=== PATIENT | female | born 1985 | race African-American/Black ===

== ENCOUNTER 2017-04-01 09:41 | Emergency (ER) | payer OTHER ==
[~2017-04-01 09:41] MED LIST: IBUPROFEN PO; NO MEDICATIONS; PHENERGAN PO; PHENERGAN25 MG PO; PREDNISONE PO; ULTRAM PO; VICODIN 5/1 TAB 5/50 PO
== END 2017-04-01 10:30 | disposition home or self-care (01) ==
LOC: CFTX 09:41 → CED 09:41 → CFTX 10:20
DX: S00.01XA Abrasion of scalp, initial encounter (principal); W22.8XXA Striking against or struck by other objects, initial encounter; Y92.009 Unspecified place in unspecified non-institutional (private) residence as the place of occurrence of the external cause
CPT/HCPCS: 84703; 99283